=== PATIENT | female | born 1985 | race Caucasian/White ===

== ENCOUNTER 2022-06-08 22:15 | Emergency (ER) | payer OTHER, SELFPAY ==
[2022-06-08 22:25] VITALS: BP 105/68; PULSE 89; RESP 17; TEMP 36.8; O2SAT 99; BMI 17.6
--- NOTE | 2022-06-08 23:09 | PC.NURSE ---
Dr. Reece at [facility]
[2022-06-08 23:39] VITALS: BP 100/64; PULSE 66; O2SAT 98
[2022-06-09 00:12] VITALS: BP 105/65; PULSE 88; RESP 17; TEMP 36.8; O2SAT 98
--- NOTE | 2022-06-09 02:11 | HMH.EDGENADL ---
Discharge Plan Disposition Patient Disposition: Home, Self-Care Condition: Good Prescriptions Prescriptions: New ondansetron 4 mg tablet,disintegrating 4 mg PO Q6H PRN (Reason: nausea and vomiting) Qty: 14 0RF Referrals Follow up/Referrals: Provider,Referral, MD [Primary Care Provider] - See instructions Clinical Impressions Clinical Impression: Nausea Instructions Patient Instructions: DI for Nausea -- Adult Discharge ED Provider: Andrew Reece General Adult HPI General Chief complaint: Nausea/Vomiting/Diarrhea Stated complaint: sore throat, nausea Time Seen by Provider: 06/08/22 23:00 Mode of Arrival: Family Vehicle Source of Information: Patient Limitations: No Limitations Description of Symptoms (Recalled from ER Triage Doc. by RN): Pt c/o nausea and vomiting since last night after eating a gas station cheeseburger. She also c/o a sore throat d/t the vomiting. History of Present Illness HPI narrative: Patient presents for evaluation of nausea and vomiting as well as a sore throat likely secondary to the vomiting. They report that they ate gas station food yesterday and since that time of had some stomach upset. No diarrhea at this time, no hematemesis, no other medical problems or surgical history. Patient not dehydrated on exam. Related Data Previous Rx's Medication Instructions Recorded ondansetron 4 mg disintegrating 4 mg PO Q6H PRN nausea and 06/08/22 tablet vomiting #14 tabs Allergies Allergy/AdvReac Type Severity Reaction Status Date / Time PCN (penicillin) Allergy Mild I-HIVES Uncoded 04/02/17 14:47 [facility] Disclaimer: The information contained in this section may have been updated after the patient was seen, as this information can be updated by other users. Social History Smoking Status: Never smoker alcohol intake: current current occupational status: employed Travel in the last 8 weeks: None ROS Obtained: Yes All systems reviewed & no additional complaints except as documented Physical Exam General General appearance: alert and in no apparent distress Head Head exam: atraumatic and normocephalic Respiratory Respiratory exam: Present normal lung sounds bilaterally Cardiovascular Cardiovascular exam: Present regular rate and normal rhythm Neurological Exam Neurological exam: Present alert and oriented X3 Skin Skin exam: Present warm and dry Medical Decision Making Ha Inquiry Pt receiving controlled substance: No Vital Signs: 06/08/22 23:39 06/08/22 22:25 06/09/22 00:12 Temperature 98.2 F Temperature Source Oral Pulse Rate 66 Pulse Rate [Right] 89 Respiratory Rate 17 Blood Pressure 100/64 L Blood Pressure [Right Arm] 105/68 L Blood Pressure Mean [Right Arm] 80 Blood Pressure Source [Right Arm] Automatic Cuff 02 Sat by Pulse Oximetry 98 99 Oxygen Delivery Method Room Air Room Air Room Air 06/09/22 00:12 Temperature 98.2 F Temperature Source Pulse Rate 88 Pulse Rate [Right] Respiratory Rate 17 Blood Pressure 105/65 L Blood Pressure [Right Arm] Blood Pressure Mean [Right Arm] Blood Pressure Source [Right Arm] 02 Sat by Pulse Oximetry Oxygen Delivery Method Room Air Orders (Tests/Meds): ED MEDICATIONS Discontinued Medications Generic Name Dose Route Start Last Admin Trade Name Freq PRN Reason Stop Dose Admin Famotidine 20 mg 06/08/22 23:12 06/09/22 00:02 Famotidine 20mg Tablet PO 06/08/22 23:13 20 mg ONCE ONE Administration Ondansetron HCl 4 mg 06/08/22 23:12 06/09/22 00:02 Ondansetron 4mg Odt SL 06/08/22 23:13 4 mg ONCE ONE Administration Medical Decision Narrative: Patient presents for evaluation of sore throat in the setting of recent vomiting. Patient reports eating a cheeseburger from a Station yesterday and since that time has developed nausea with some vomiting. Patient's abdominal exam benign. No significant past medical or surgical histor
== END 2022-06-09 00:15 | disposition home or self-care (01) ==
PROVIDERS: Emergency Provider Emergency Medicine
DX: R11.2 Nausea with vomiting, unspecified (principal); J02.9 Acute pharyngitis, unspecified
CPT/HCPCS: 99283; 99284

== ENCOUNTER 2024-08-04 12:41 | Outpatient (CLI) | payer OTHER, SELFPAY ==
--- NOTE | 2024-08-04 12:53 | MM_ITS ---
PROCEDURE INFORMATION: Exam: Bilateral Screening 3D Mammography Exam date and time: 08/04/2024 1:08 PM Age: 38 years old Clinical indication: Screening mammogram TECHNIQUE: Imaging protocol: Bilateral Screening tomosynthesis and 2D mammography including computer-aided detection (CAD) when performed. COMPARISON: No relevant prior studies available. FINDINGS: MAMMOGRAPHY: Breast composition: The breast tissue is extremely dense, which lowers the sensitivity of mammography. Mass: Possible obscured 0.6 cm mass within the inner posterior left breast, not well-delineated on MLO, should be further assessed with spot views in CC/MLO and full lateral projection. Ultrasound should also be scheduled. Architectural distortion: No new or suspicious architectural distortion. Calcifications: No new or suspicious calcifications are present Asymmetric density: No new or suspicious asymmetric density is present Skin thickening: None. Axillary adenopathy: None. IMPRESSION: Possible obscured 0.6 cm mass within the inner posterior left breast, not well-delineated on MLO, should be further assessed with spot views in CC/MLO and full lateral projection. Ultrasound should also be scheduled. ASSESSMENT: BI-RADS Category 0: Incomplete - Need Additional Imaging Evaluation
== END 2024-08-04 23:59 | disposition home or self-care (01) ==
LOC: RAD 12:43
PROVIDERS: PCP Nurse Practitioner; Visit Provider Nurse Practitioner
DX: Z12.31 Encounter for screening mammogram for malignant neoplasm of breast (principal)
CPT/HCPCS: 77063; 77067

== ENCOUNTER 2024-08-17 14:29 | Outpatient (CLI) | payer OTHER, SELFPAY ==
--- NOTE | 2024-08-17 14:32 | US_ITS ---
PROCEDURE INFORMATION: Exam: US Left Breast, Complete MG Left Diagnostic Breast Tomosynthesis Exam date and time: 08/17/2024 2:31 PM Age: 38 years old Clinical indication: Callback for a questionable mass in the left medial posterior breast best seen on the craniocaudal projection. TECHNIQUE: Imaging protocol: Complete ultrasound of all four quadrants of the left breast and the retroareolar regions, including ultrasound of the axilla when performed. Left Diagnostic tomosynthesis and 2D mammography including computer-aided detection (CAD) when performed. Unilateral or bilateral exam. COMPARISON: MG MM DIG SCREENING MAMM BI W/CAD 08/04/2024 1:08 PM FINDINGS: MAMMOGRAPHY: Breast composition: The breasts are extremely dense, which lowers the sensitivity of mammography. Breast mammogram findings: In the far medial aspect of the left breast on the additional views, there is no persistent mass, asymmetry, or distortion. ULTRASOUND: Breast ultrasound findings: Ultrasound the left breast is performed. Benign clustered microcysts in the 1 o'clock axis, 2 cm from the nipple that measure approximately 0.7 cm. There is a hypoechoic circumscribed parallel mass the left breast 2 o'clock axis, 2 cm from the nipple measuring 0.7 x 0.3 x 0.5 cm, probably benign. No suspicious mass, shadowing, or distortion elsewhere throughout remainder of the left breast. No axillary adenopathy. IMPRESSION: 1. No suspicious mass is persistent in the left medial breast on mammography. No correlate on ultrasound. 2. Probably benign, incidental, hypoechoic mass in the left breast 2 o'clock axis, 2 cm from the nipple measuring 0.7 cm on ultrasound. Ultrasound follow-up in 6 months is recommended for this finding. ASSESSMENT: BI-RADS Category 3: Probably benign.
== END 2024-08-17 23:59 | disposition home or self-care (01) ==
LOC: RAD 14:30
PROVIDERS: PCP Nurse Practitioner; Visit Provider Nurse Practitioner
DX: Z12.31 Encounter for screening mammogram for malignant neoplasm of breast (principal)
CPT/HCPCS: 76641; 77061; 77065; G0279